=== PATIENT | male | born 1965 | race Caucasian/White ===

== ENCOUNTER → 2020-03-28 | Outpatient (CLI) | payer MEDICARE, OTHER ==
[~2020-03-28] MED LIST: ASPIRIN 325MG325 MG PO; DICLOFENAC GEL 1% TOP; IBUPROFEN800 MG PO; KEFLEX500 MG PO; LISINOPRIL40 MG PO; LORATADINE10 MG PO; MOBIC15 MG PO; MS CONTIN15 MG PO; NEURONTIN800 MG PO; NORVASC10 MG PO; OMEPRAZOLE20 M1 PO; PERCOCET 10-321 EACH PO; SOMA350 MG PO; ULTRAM50 MG PO; VITAMIN C 500500 MG PO; VITAMIN C500 M4 PO; VITAMIN D250 MCG PO
== END ==
LOC: KOH-I 09:02
DX: Z47.1 Aftercare following joint replacement surgery (principal); Z96.698 Presence of other orthopedic joint implants
CPT/HCPCS: 73630

== ENCOUNTER → 2020-04-19 | Outpatient (CLI) | payer MEDICARE, OTHER | LOC: KOH-I 15:47 | DX: Z47.1 Aftercare following joint replacement surgery (principal); Z96.698 Presence of other orthopedic joint implants | CPT/HCPCS: 73630 ==

== ENCOUNTER → 2020-05-16 | Outpatient (CLI) | payer MEDICARE, OTHER | LOC: KOH-I 16:08 | DX: S92.901D Unspecified fracture of right foot, subsequent encounter for fracture with routine healing (principal); X58.XXXD Exposure to other specified factors, subsequent encounter | CPT/HCPCS: 73630 ==

== ENCOUNTER → 2021-10-19 | Outpatient (CLI) | payer MEDICARE | LOC: KOH-I 15:43 | DX: M25.572 Pain in left ankle and joints of left foot (principal); M19.072 Primary osteoarthritis, left ankle and foot | CPT/HCPCS: 73610; 73630 ==